=== PATIENT | female | born 1965 | race Two or more races ===

== ENCOUNTER 2024-11-03 12:15 | Inpatient (IN) | payer OTHER ==
[~2024-11-03] VITALS: Ht 162.6 cm; Wt 89.8 kg
[2024-11-03] MEDS ORDERED: COZAAR100 MG PO (14:28)
[2024-11-03 14:29] VITALS: BP 141/78
[2024-11-03] MEDS ORDERED: NORVASC5 MG PO (14:29)
[2024-11-11] MEDS ORDERED: CEFAZOLIN SODIUM 1,000 MG VIAL IV SCH ×2 (12:30→17:00)
[2024-11-11] MEDS ORDERED: POVIDONE-IODINE 118 ML BOTT TOP ONE (12:30)
[2024-11-11] MEDS ORDERED: HEMOSTATIC MATRIX 1 KIT KIT TOP ONE (13:15)
[2024-11-11] MEDS ORDERED: SURGIFLO APPLICATOR 1 EACH APPL TOP ONE (13:15)
[2024-11-11] MEDS ORDERED: KETOROLAC TROMETHAMINE 30 MG VIAL IV STA (13:23)
[2024-11-11] MEDS ORDERED: KETOROLAC TROMETHAMINE 30 MG VIAL IV ONE (14:25)
[2024-11-11] MEDS ORDERED: MORPHINE SULFATE 4 MG/ML VIAL IV ONE ×2 (15:10→18:20)
[2024-11-11] MEDS ORDERED: ONDANSETRON HCL 2 MG/ML VIAL IV ONE (15:25)
[2024-11-11] MEDS ORDERED: RINGERS SOLUTION,LACTATED 1,000 ML IV SCH (16:15)
[2024-11-11] MEDS ORDERED: MORPHINE SULFATE 4 MG/ML CARTRIDGE IV PRN (16:15)
[2024-11-11] MEDS ORDERED: METOCLOPRAMIDE HCL 5 MG/ML VIAL IV SCH (17:00)
[2024-11-11 17:51] LABS: GLUCOSE FASTING 115.0 mg/dL (65-100); OSMOLALITY SERUM 283.0 MOSM/KG (275-295)
[2024-11-11 17:52] LABS: BASO % 0.2 % (0.1-1.2); EOS # 0.00 (0.04-0.54); EOS % 0.0 % (0.7-7.0); LYMPH # 0.69 (1.18-3.74); LYMPH % 5.3 % (19.3-53.1); MEAN PLATELET VOLUME 10.10 fl (9.4-12.4); MONO # 0.64 (0.24-0.82); MONO % 4.9 % (4.7-12.5); NEUT # 11.73 (1.56-6.13); NEUT % 89.3 % (34.0-71.1); RED CELL DISTRIBUTION WIDTH 12.5 % (11.6-14.4)
[2024-11-11 17:54] LABS: BUN CREA RATIO 12.0 (7.0-25.0); CREATININE SERUM 0.75 mg/dL (0.55-1.02); GFR 79.65
[2024-11-11] MEDS ORDERED: ACETAMINOPHEN 500 MG GEL..CAP PO SCH (18:00)
[2024-11-11] MEDS ORDERED: GABAPENTIN 300 MG CAPSULE PO SCH (21:00)
[2024-11-11] MEDS ORDERED: KETOROLAC TROMETHAMINE 30 MG VIAL IV SCH (21:00)
[2024-11-11] MEDS ORDERED: SIMETHICONE 125 MG CAPSULE PO SCH (21:00)
[2024-11-11] MEDS ORDERED: FAMOTIDINE/PF 20 MG/2 ML VIAL IV PUSH SCH (21:00)
[2024-11-11] MEDS ORDERED: DOCUSATE SODIUM 100MG CAP PO SCH (21:00)
[2024-11-11 22:00] VITALS: BP 141/78
[2024-11-12 00:48] VITALS: BP 119/63; O2SAT 96
[2024-11-12 04:05] LABS: BASO % 0.5 % (0.1-1.2); EOS # 0.03 (0.04-0.54); EOS % 0.3 % (0.7-7.0); LYMPH # 1.41 (1.18-3.74); LYMPH % 14.1 % (19.3-53.1); MEAN PLATELET VOLUME 9.90 fl (9.4-12.4); MONO # 0.70 (0.24-0.82); MONO % 7.0 % (4.7-12.5); NEUT # 7.76 (1.56-6.13); NEUT % 77.9 % (34.0-71.1); RED CELL DISTRIBUTION WIDTH 12.6 % (11.6-14.4)
[2024-11-12 04:20] LABS: BUN CREA RATIO 13.0 (7.0-25.0); CREATININE SERUM 0.75 mg/dL (0.55-1.02); GFR 79.65; GLUCOSE FASTING 93.0 mg/dL (65-100); OSMOLALITY SERUM 284.0 MOSM/KG (275-295)
[2024-11-12] MEDS ORDERED: RINGERS SOLUTION,LACTATED 500 ML IV STA (08:48)
[2024-11-12 08:52] VITALS: BP 138/69; O2SAT 96
[2024-11-12 15:24] LABS: ALT/SGPT 38.0 U/L (12-78); AST/SGOT 24.0 U/L (15-37); BILIRUBIN TOTAL 0.55 mg/dL (0.3-1.2); BUN CREA RATIO 13.0 (7.0-25.0); CREATININE SERUM 0.72 mg/dL (0.55-1.02); GFR 83.49; GLOBULINA 3.4 G/DL (2.4-3.5); GLUCOSE FASTING 130.0 mg/dL (65-100); OSMOLALITY SERUM 282.0 MOSM/KG (275-295)
[2024-11-12 16:00] VITALS: BP 121/64; O2SAT 98
[2024-11-12] MEDS ORDERED: ENOXAPARIN SODIUM 40 MG/0.4 ML SYRINGE SUBCUTANEO SCH (17:00)
== END 2024-11-12 19:21 | disposition home or self-care (01) | DRG 743 ==
LOC: OB/GYN 11-11 08:27 → O/R 11-11 08:27 → SURG 11-11 11:45 → OB/GYN 11-11 20:01
PROVIDERS: ADMIT Obstetrics & Gynecology; ATTEND Obstetrics & Gynecology
PROC: 0UT74ZZ Resection of Bilateral Fallopian Tubes, Percutaneous Endoscopic Approach (ICD-10-PCS; 2024-11-11)
PROC: 0DNU4ZZ Release Omentum, Percutaneous Endoscopic Approach (ICD-10-PCS; 2024-11-11)
PROC: 0UT24ZZ Resection of Bilateral Ovaries, Percutaneous Endoscopic Approach (ICD-10-PCS; principal; 2024-11-11 11:45)
DX: D27.0 Benign neoplasm of right ovary (principal); D39.10 Neoplasm of uncertain behavior of unspecified ovary; D28.2 Benign neoplasm of uterine tubes and ligaments